=== PATIENT | female | born 1955 ===

== ENCOUNTER → 2017-10-04 | Outpatient (CLI) | payer BC | LOC: ZCOL.LAB 16:17 | DX: Z11.2 Encounter for screening for other bacterial diseases (principal); Z86.14 Personal history of Methicillin resistant Staphylococcus aureus infection ==

== ENCOUNTER → 2018-05-24 | Outpatient (CLI) | payer BC | LOC: ZCOL.LAB 16:15 | DX: Z01.812 Encounter for preprocedural laboratory examination (principal); Z86.14 Personal history of Methicillin resistant Staphylococcus aureus infection ==